=== PATIENT | female | born 1950 | race Caucasian/White ===

== ENCOUNTER → 2018-03-13 | Outpatient (CLI) | payer OTHER, MEDICAID ==
[~2018-03-13] MED LIST: ALPRAZOLAM; AMITIZA 24 MCG24 MC1; ASPIR 8181 MG PO; ASPIRIN325; BUDEPRION SR150 MG; CLONAZEPAM; CLONAZEPAM 0.50.5 M1 PO; COLACE100 MG; COZAAR 50 MG TA50 M2 PO; DESYREL50 MG; FAMOTIDINE 20 M20 MG PO; FISH OIL SOFTG1 EACH; FUROSEMIDE 20 M20 M1 PO; FUROSEMIDE 40 M40 M1 PO; HUMALOG100 UNIT/2 SUBQ; IMDUR 30 MG TAB30 MG; K-DUR10 MEQ PO; LEVO-T50 MCG PO; LEXAPRO20 MG; LIPITOR 20 MG T20 M1 PO; LOVASTAT40; MINIPRIN81 MG; NEURONTIN800 MG; NIASPAN ER 101000 M1; NORCO 5-325 TA1 EACH PO; NOVOLOG MI100 UNIT/2; OMEPRAZOLE20 M2; PERCOCET 5-3251 EACH; PLAVIX 75 MG TA75 M1 PO; PLAVIX 75 MG TA75 MG; RENAL SOFTGEL1 MG; SODIUM BICARBO650 M3; SYNTHROID25 MC1 PO; SYNTHROID50 MCG PO; TOPROL XL200 MG; TYLENOL325 MG PO; VITAMIN B-12500 MCG PO; VITAMIN D1000 UNI1 PO; ZANTAC 150MG T150 M1
[2018-03-13 10:56] LABS: CREATININE 0.7 mg/dL (0.6-1.3)
== END ==
LOC: M.LAB 10:00 → M.CT 11:00
PROVIDERS: Surgery
DX: I65.23 Occlusion and stenosis of bilateral carotid arteries (principal); J43.9 Emphysema, unspecified

== ENCOUNTER 2018-06-01 07:55 | Inpatient (IN) | payer OTHER, MEDICAID ==
[2018-06-01] VITALS (20 sets, daily range): BP systolic 88–147; BP diastolic 27–60
[~2018-06-01] VITALS: Ht 165.1 cm; Wt 66.2 kg
[~2018-06-01 07:55] MED LIST changes: -ASPIR 8181 MG PO; -FAMOTIDINE 20 M20 MG PO; -FUROSEMIDE 40 M40 M1 PO; -NORCO 5-325 TA1 EACH PO; -SYNTHROID50 MCG PO
[2018-06-01 08:38] LABS: ABSOLUTE EOSINOPHILS 0.1 thou/uL (0.0-0.7); ABSOLUTE LYMPHOCYTES 1.5 thou/uL (0.8-5.3); ABSOLUTE MONOCYTES 0.6 thou/uL (0.0-1.2); ABSOLUTE NEUTROPHILS 3.4 thou/uL (1.6-8.1); BASOPHILS 0.7 %; HEMATOCRIT 32.1 % (37.0-47.0); HEMOGLOBIN 10.4 gm/dL (12.0-15.0); LYMPHOCYTES 26.3 %; MCH 25.7 pg (26.0-34.0); MCHC 32.3 g/dL (28.0-37.0); MCV 79.5 fL (80.0-100.0); MONOCYTES 11.3 %; MPV 7.8 fl. (7.2-11.1); NUCLEATED RBCS 0 /100WBC; PLATELET COUNT* 307 thou/uL (150-400); POLYS 59.7 %; RBC 4.03 mil/uL (4.20-5.00); WBC 5.6 thou/uL (4.0-11.0)
[2018-06-01 08:44] LABS: CALCIUM 9.1 mg/dL (8.5-10.1); CREATININE 0.8 mg/dL (0.6-1.3); POTASSIUM 4.3 mmol/L (3.5-5.1)
--- NOTE | 2018-06-01 15:22 | EKG ---
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
[2018-06-01 17:36] LABS: HEMATOCRIT 27.1 % (37.0-47.0); HEMOGLOBIN 8.8 gm/dL (12.0-15.0)
[2018-06-01 17:49] LABS: CALCIUM 8.1 mg/dL (8.5-10.1); CREATININE 0.8 mg/dL (0.6-1.3); MAGNESIUM 1.6 mg/dL (1.8-2.4); POTASSIUM 4.4 mmol/L (3.5-5.1)
[2018-06-02] VITALS (9 sets, daily range): BP systolic 121–155; BP diastolic 32–48
[2018-06-02 09:24] LABS: HEMOGLOBIN 8.6 gm/dL (12.0-15.0); MCH 25.9 pg (26.0-34.0); MCHC 31.9 g/dL (28.0-37.0); MCV 81.2 fL (80.0-100.0); MPV 7.8 fl. (7.2-11.1); RBC 3.32 mil/uL (4.20-5.00); RDW-CV 16.3 % (10.5-14.5); WBC 7.5 thou/uL (4.0-11.0)
[2018-06-02 09:31] LABS: CALCIUM 8.4 mg/dL (8.5-10.1); POTASSIUM 4.6 mmol/L (3.5-5.1)
[2018-06-02] MEDS ORDERED: ASPIR 8181 MG PO (13:51)
[2018-06-02] MEDS ORDERED: FUROSEMIDE 40 M40 M1 PO (13:52)
[2018-06-02] MEDS ORDERED: NORCO 5-325 TA1 EACH PO (13:55)
[2018-06-02] MEDS ORDERED: FAMOTIDINE 20 M20 MG PO (14:28)
[2018-06-02] MEDS ORDERED: COZAAR 50 MG TA50 M2 PO (14:29)
[2018-06-02] MEDS ORDERED: SYNTHROID50 MCG PO (14:31)
--- NOTE | 2018-06-10 08:09 | PATH ---
[facility] [address] [place] [address] PATHOLOGY RPT PROCEDURE Name: MICHELLE ROBLEDO Room: [address] IN M.R.#: [id number] Admission: 06/01/18 Date of : 46 Discharge: 06/02/18 Report #: [id number] Path Case #: [id number] [facility] Accession Number: [id number] . 01 Material submitted: . PART A: RIGHT CERVICAL NODE PART B: RIGHT CAROTID PLAQUE . 01 Clinical history: . Right carotid artery stenosis . 02 Diagnosis: A. Right cervical lymph node: - Benign lymph node with mild follicular hyperplasia. . B. Right carotid plaque: - Fibrointimal atherosclerotic plaque with calcification. . (NATACHA:pit 06/05/2018) QTP/06/05/2018 . 02 Electronically signed: . Fabián Sloan MD, Pathologist NPI- [id number] . 01 Gross description: . A. The specimen is received in formalin, labeled "Michelle Robledo, right cervical lymph node" and consists of a lymph node candidate measuring 1.3 x 0.6 x 0.4 cm. It is serially sectioned and entirely submitted in A1. . B. The specimen is received in formalin, labeled "Michelle Robledo, right carotid plaque" and consists of a rubbery segment of yellow-evans tissue measuring 2.6 x 1.2 x 0.8 cm. The lumen is markedly calcified approximately 40-50% and u.s. representative sections are submitted in B1 following decalcification. (SDY; 06/02/2018) SYU/SYU . 02 Pathologist provided ICD-10: I65.21, R59.9 . 02 CPT . 790611, 186626, 811280 Performed at: [address] [id number] MD Ant Andersen MD Phone: [phone] Performed at: [address] [place] [address] PATHOLOGY RPT PROCEDURE Name: MICHELLE ROBLEDO Room: [address] IN M.R.#: [id number] Admission: 06/01/18 Date of : 46 Discharge: 06/02/18 Report #: [id number] Path Case #: [id number] [address], [place] [id number] MD Fabián Sloan MD Phone: [phone]
--- NOTE | 2018-06-16 14:40 | OP ---
[facility] [address] [place] [address] OPERATIVE REPORT Name: ABDOUL ROBLEDO Room: [address] IN M.R.#: [id number] Admission: 06/01/18 Attend Phys: Keri Sweet Discharge: 06/02/18 Date of : 46 Report #: [id number] THIS REPORT FOR: //name// CC: Zain Hernandez DATE OF SERVICE: 06/01/2018 PREOPERATIVE DIAGNOSIS: Asymptomatic carotid stenosis, right internal carotid artery. POSTOPERATIVE DIAGNOSIS: Asymptomatic carotid stenosis, right internal carotid artery. SURGEON: Zain Fernández DO. EXECUTIVE VICE PRESIDENT OF SALES: None. PROCEDURE: 1. Right carotid endarterectomy and bovine pericardial patch angioplasty. 2. Intraoperative arterial duplex. ANESTHESIA: General endotracheal anesthesia. ESTIMATED BLOOD LOSS: 100 mL. SPECIMEN: Plaque. COMPLICATIONS: None. CONDITION: Stable. DISPOSITION: ICU. INDICATIONS FOR THE PROCEDURE AND CONSENT: A timeout was performed. The patient was placed in supine position with sterile prep and drape of the anterior neck and chest wall. Semi-transverse incision was made anterior to the sternocleidomastoid on the right and dissection was carried down using Bovie electrocautery. The facial vein was then dissected sharply with Metzenbaum scissors and the facial vein ligated between 2-0 silk sutures and divided. The common carotid artery was then identified and sharply dissected and proximal controlled with a Rumel tourniquet using an umbilical tape. The internal and external carotid artery was then dissected sharply to a soft, normal portion of the internal carotid artery and posterior small vessel loop was applied to assist with control. The external carotid artery was controlled with a vessel [address] [address] OPERATIVE REPORT Name: ABDOUL ROBLEDO Room: [address] IN R.#: [id number] Admission: 06/01/18 Attend Phys: Keri Sweet Discharge: 06/02/18 Date of : 46 Report #: [id number]. The patient was then systemically heparinized with 6000 units of heparin, allowed to circulate for 3 minutes. The internal carotid artery was then clamped as was the external common carotid artery controlled. An 11 blade scalpel and West scissors used to make a longitudinal arteriotomy and a shunt was placed distally and noted to backbleed well, was then placed within the common carotid artery and secured. Plaque elevator was then used to perform the endarterectomy and tapered distally nicely. The external carotid artery was everted and debris was removed. The endarterectomized portion was meticulously cleaned with forceps and irrigated copiously with hep saline to identify any flaps or debris and none were identified. No tacking sutures were required. Once satisfied with the endarterectomy portion, I then applied a 0.8 x 8 mm patch and circumferentially sutured it with 6-0 Prolene. Prior to complete closure, the shunt was removed reapplying clamps and the endarterectomized portion was again copiously irrigated with heparinized saline and allowed to backbleed from the external and forward bleed through in the common carotid artery to remove any potential debris. The area was then reirrigated and the patch closed. Blood flow was then restored through the external carotid artery and ultimately up the internal carotid artery. The patch was noted to be hemostatic. The wound was irrigated and then, an intraoperative duplex was performed. The intraoperative duplex demonstrated normal appearing waveforms and no anatomic concerns, please see saved images. Wound was then copiously irrigated and closed in layers using 2-0 Vicryl, 3-0 Vicryl and 4-0 Monocryl suture. Dermabond dressing was applied. The patient tolerated the procedure well. Lap, needle, instrument counts correct. <ELECTRONICALLY SIGNED> By: Zain Fernández DO 06/16/18 1440 1400 1424Zain Fernández DO /nt
== END 2018-06-02 14:45 | disposition home health service (06) | DRG 38 ==
LOC: M.TBA 07:55 → M.ICU 07:55 → M.PRE 08:50 → M.ICU 15:55
PROVIDERS: Surgery; ADMIT Internal Medicine
PROC: 03HY32Z Insertion of Monitoring Device into Upper Artery, Percutaneous Approach (ICD-10-PCS; principal; 2018-06-01)
PROC: 4A133J1 Monitoring of Arterial Pulse, Peripheral, Percutaneous Approach (ICD-10-PCS; principal; 2018-06-01)
PROC: 03CH0ZZ Extirpation of Matter from Right Common Carotid Artery, Open Approach (ICD-10-PCS; principal; 2018-06-01)
PROC: 03UH0JZ Supplement Right Common Carotid Artery with Synthetic Substitute, Open Approach (ICD-10-PCS; principal; 2018-06-01)
PROC: 4A133B1 Monitoring of Arterial Pressure, Peripheral, Percutaneous Approach (ICD-10-PCS; principal; 2018-06-01)
DX: I65.21 Occlusion and stenosis of right carotid artery (principal); E87.1 Hypo-osmolality and hyponatremia; E11.51 Type 2 diabetes mellitus with diabetic peripheral angiopathy without gangrene; I10 Essential (primary) hypertension; E03.9 Hypothyroidism, unspecified; E78.5 Hyperlipidemia, unspecified; F17.210 Nicotine dependence, cigarettes, uncomplicated; I70.209 Unspecified atherosclerosis of native arteries of extremities, unspecified extremity; Z90.49 Acquired absence of other specified parts of digestive tract; Z98.1 Arthrodesis status; Z95.5 Presence of coronary angioplasty implant and graft

== ENCOUNTER → 2019-09-25 | Outpatient (CLI) | payer OTHER, MEDICAID ==
[~2019-09-25] MED LIST changes: +ASPIR 8181 MG PO; +FAMOTIDINE 20 M20 MG PO; +FUROSEMIDE 40 M40 M1 PO; +NORCO 5-325 TA1 EACH PO; +SYNTHROID50 MCG PO
[2019-09-25 12:41] LABS: HEMATOCRIT 39.2 % (37.0-47.0); HEMOGLOBIN 13.7 gm/dL (12.0-15.0)
[2019-09-25 12:57] LABS: CALCIUM 9.2 mg/dL (8.5-10.1); CREATININE 0.8 mg/dL (0.6-1.3)
== END ==
LOC: M.LAB 12:02
PROVIDERS: Surgery Vascular Surgery
DX: I70.213 Atherosclerosis of native arteries of extremities with intermittent claudication, bilateral legs (principal)

== ENCOUNTER 2019-11-14 08:35 | Emergency (ER) | payer OTHER, MEDICAID ==
[~2019-11-14] VITALS: Ht 165.1 cm; Wt 66.7 kg
[2019-11-14] MEDS ORDERED: NORCO 5-325 TA1 EAC1 PO (11:26)
[2019-11-14 12:19] VITALS: BP 109/45
== END 2019-11-14 12:21 | disposition home or self-care (01) ==
LOC: M.ERS 08:35
DX: M25.562 Pain in left knee (principal); M25.552 Pain in left hip; M54.5 Low back pain; I10 Essential (primary) hypertension; E11.9 Type 2 diabetes mellitus without complications; E78.5 Hyperlipidemia, unspecified; E03.9 Hypothyroidism, unspecified; Z90.49 Acquired absence of other specified parts of digestive tract

== ENCOUNTER 2019-11-15 07:51 | Inpatient (IN) | payer OTHER, MEDICAID ==
[~2019-11-15] VITALS: Ht 165.1 cm; Wt 71.6 kg
[~2019-11-15 07:51] MED LIST changes: +COZAAR 50 MG TA50 M1 PO; +NORCO 5-325 TA1 EAC1 PO
[2019-11-15 07:52] VITALS: BP 154/51
[2019-11-15 08:23] LABS: ABSOLUTE EOSINOPHILS 0.1 thou/uL (0.0-0.7); ABSOLUTE LYMPHOCYTES 0.9 thou/uL (0.8-5.3); ABSOLUTE MONOCYTES 0.8 thou/uL (0.0-1.2); ABSOLUTE NEUTROPHILS 6.3 thou/uL (1.6-8.1); BASOPHILS 0.5 %; EOSINOPHILS 1.7 %; HEMATOCRIT 37.1 % (37.0-47.0); HEMOGLOBIN 12.9 gm/dL (12.0-15.0); LYMPHOCYTES 10.9 %; MCH 32.8 pg (26.0-34.0); MCHC 34.7 g/dL (28.0-37.0); MCV 94.4 fL (80.0-100.0); MONOCYTES 9.5 %; MPV 7.7 fl. (7.2-11.1); NUCLEATED RBCS 0 /100WBC; PLATELET COUNT* 249 thou/uL (150-400); POLYS 77.4 %; RBC 3.93 mil/uL (4.20-5.00); RDW-CV 12.3 % (10.5-14.5); WBC 8.2 thou/uL (4.0-11.0)
[2019-11-15 08:37] LABS: CALCIUM 8.6 mg/dL (8.5-10.1); CREATININE 0.9 mg/dL (0.6-1.3); POTASSIUM 4.3 mmol/L (3.5-5.1)
[2019-11-15 08:41] LABS: ALBUMIN 3.3 g/dL (3.4-5.0); TOTAL BILIRUBIN 0.4 mg/dL (<0.1-1.0); TOTAL PROTEIN 6.5 g/dL (6.4-8.2)
[2019-11-15 09:49] VITALS: BP 123/41
[2019-11-15 10:00] VITALS: BP 137/44
[2019-11-15 14:12] LABS: URINE BILIRUBIN NEGATIVE (Negative); URINE BLOOD NEGATIVE (Negative); URINE CLARITY CLEAR; URINE COLOR YELLOW; URINE GLUCOSE-RANDOM NEGATIVE (Negative); URINE KETONES NEGATIVE (Negative); URINE LEUKOCYTES-REFLEX TRACE (Negative); URINE NITRITE-REFLEX NEGATIVE (Negative); URINE PROTEIN NEGATIVE (Negative); URINE UROBILINOGEN 0.2 E.U./dl (0.2-1.0)
[2019-11-15 14:18] LABS: BACTERIA-REFLEX >30 Many /HPF (None Seen); CASTS None Seen /LPF (None Seen); CRYSTALS None Seen /LPF (None Seen); SQUAMOUS 0-3 Few /LPF (0-3); URINE RBC 0-2 Rare /HPF (0-2); WBC CLUMPS Moderate (None Seen)
[2019-11-15 16:00] VITALS: BP 128/52
--- NOTE | 2019-11-15 18:57 | NUR ---
PT ARRIVED ON UNIT AT 1000, PAIN MEDS PROVIDED PRIOR TO ARRIVAL. VSS THIS SHIFT. PLACED ON 2L PER NC TO KEEP O2 SATS GREATER THAN 92%. PT HAS BEDREST ORDERED AT THIS TIME WITH PT/OT CONSULTS. PT TURNS SELF WELL BUT WE ARE REMINDING AT THIS TIME. HOURLY ROUNDING MAINTAINED THIS SHIFT. WILL CONTINUE TO MONITOR AND ASSESS
[2019-11-15 20:10] VITALS: BP 146/53
--- NOTE | 2019-11-16 04:50 | NUR ---
PATIENT HAS REMAINED ALERT AND ORIENTED X 4 THROUGHOUT THE SHIFT ON HOURLY ROUNDS. THIS INCLUDES DURING THE EVENING WHEN BLOOD GLUCOSE FOUND AT 29. STAT LAB DRAW 30. SNACK PROVIDED WITH RETURN TO NORMAL LIMITS AT 94. FURTHER CHECKS DURING THE NIGHT 97 AND LASTLY AT 0430 AT 100. PATIENT DOES HAVE A PROGRAMABLE INSULIN PUMP BUT HAS ASKED FOR US TO USE OUR INSULIN SHE LITTLE LEFT. ASSIST WITH TURNS Q2H. MEDICATED FOR BACK PAIN X 1 OF THIS WRITING. VITAL SIGNS STABLE. CONTINUE TO MONITOR.
[2019-11-16 08:13] VITALS: BP 133/50
--- NOTE | 2019-11-16 09:31 | NUR ---
CM ASSESSMENT: PT LIVES ALONE IN [place]. HER NIECE HELPS HER AROUND THE HOUSE FREQUENTLY. SHE USES PRIMARILY AN ELECTRIC WC AND TRANSFERS TO BR AND SHOWER. PT ABLE TO PERFORM ADLS WITHOUT ASSIST. 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 HER DR HAS RECOMMENDED O2 AT NIGHT BUT SHE REFUSES. PT DOES NOT DRIVE. SHE USES [facility] FOR DR MONTELONGO AND HAS HER NIECE OR CHILDREN TAKE HER TO THE STORE OR OTHER TRANSPORT NEEDS. PT DENIES NEED FOR HH UPON DC. WILL CONTINUE TO FOLLOW
--- NOTE | 2019-11-16 16:26 | NUR ---
SNF RECOMMENDED BY Parisa AND DR. CALEB LANIER,[employer] DRAFTSMAN.
[2019-11-16 16:45] VITALS: BP 128/43
--- NOTE | 2019-11-16 16:52 | NUR ---
FAXED CLINICAL REFERRALS TO [facility] [phone] AND [facility] [place] [phone]. NOT ABLE TO CONFIRM CONFIRMATION BUT WILL FOLLOW ON 11/19/19.
--- NOTE | 2019-11-16 17:37 | NUR ---
PT A&Ox4. VITALS STABLE. IV PATENT. PT REMOVED PERSONAL INSULIN PUMP, RECEIVING SLIDING SCALE INSULIN FROM [facility]. UP WITH 1 MAX ASSIST. GOT UP TO CHAIR WITH THERAPY. TOLERATING MEALS. MINIMAL PAIN, PAIN MEDS GIVEN AFTER BREAKFAST AND DENIED THE NEED OF ANY MORE. LIDOCANE PATCH ON LOWER BACK. FALL PRECAUTIONS IN PLACE. CALL LIGHT WITHIN REACH. WILL CONTINUE TO MONITOR.
[2019-11-16 20:10] VITALS: BP 153/51
--- NOTE | 2019-11-17 04:47 | NUR ---
PATIENT HAS REMAINED ALERT AND ORIENTED X 4 THROUGHOUT THE SHIFT AND RESTING QUIETLY ON HOURLY ROUNDS. BREATHING TX X1 THIS SHIFT WHEN AWOKE WITH WHEEZING. MEDICATED FOR PAIN X 1. PATIENT REPORTS SHE HAS DECREASED ABLILTY TO MOVE LOWER EXTREMITIES SINCE FALL AT HOME/WHEN UP WITH THERAPY WAS UNABLE TO MOVE LEGS WITH SAME STRENGTH AND PURPOSE PRE-FALL. VITAL SIGNS STABLE. CONTINUE TO MONITOR.
[2019-11-17 08:45] VITALS: BP 120/41
[2019-11-17 17:19] VITALS: BP 110/28
[2019-11-17 20:00] VITALS: BP 113/41
--- NOTE | 2019-11-17 20:27 | NUR ---
I ASSUMED CARE OF THE PATIENT AT 0700. SHE IS ALERT AND ORIENTED X4 AND IS UP WITH MAX ASSIST. BED IS IN THE LOW LOCKED POSITION AND CALL LIGHT IS IN REACH. PAIN IS DENIED. HOURLY ROUNDING IS COMPLETED AND PATIENT NEEDS ARE MET. BLOOD SUGAR WAS HIGH AT THE BEGINNING OF SHIFT. PHYSICIAN WAS NOTIFIED AND NEW ORDERS WERE OBTAINED; BS CONTINUED TO TREND DOWN ALL DAY. FLUIDS WERE INFUSED. WILL CONTINUE TO MONITOR. NEW IV WAS PLACED.
--- NOTE | 2019-11-18 05:03 | NUR ---
ASSUMED PT CARE AT 1930. PT ALERT AND ORIENTED X4. PT BLOOD SUGAR 119 AT HS, S/S INSULIN GIVEN PER MAR. PRN TYLENOL GIVEN FOR BACK/LEFT LEG PAIN. PT VERY EXACTING REGARDING BED ADJUSTMENTS AND Q2 TURNS. 2L O2 PER NC. DELACRUZ TO DD DRAINING DARK YELLOW URINE. USES CALL LIGHT APPROPRIATELY. HOURLY ROUNDING IN PROGRESS, WILL CONTINUE TO MONITOR.
[2019-11-18 07:30] VITALS: BP 135/53
[2019-11-18 16:00] VITALS: BP 148/41
--- NOTE | 2019-11-18 18:00 | NUR ---
PATIENT HAS BEEN A/O X 4 THIS SHIFT. MEDICATED FOR PAIN WITH TYLENOL AND LIDODERM PATCHES. PATIENT MAX ASSIST OF 2 TO CHAIR AND BSC. NO BM BUT PASSING FLATUS. WORKED WITH PHYSICAL THERAPY THIS SHIFT. REPOSITIONED FOR PRESSURE PREVENTION. O2 REMAINS IN PLACE AT 2L/NC, VITALS STABLE. BLOOD SUGARS MONITORED, INSULIN ADMINISTERED ORDERED. UPDATED FAMILY ON PLAN OF CARE. CM CONSULTED FOR DC PLANNING. FALL PRECAUTIONS IN PLACE. HOURLY ROUNDING COMPLETED. CALL LIGHT WITHIN REACH. WILL CONTINUE WITH PLAN OF CARE.
[2019-11-18 20:30] VITALS: BP 146/60
--- NOTE | 2019-11-18 22:29 | NUR ---
INITAL ASSESMENT COMPLETED AT 2030, PT PLEASANT AND COOPERATIVE. VITAL SIGNS WITHIN NORMAL LIMITS, CALL LIGHT IN REACH, PT DEMONSTRATES PROPER USE.
[2019-11-19 09:20] VITALS: BP 146/61
[2019-11-19 09:41] LABS: HEMOGLOBIN 12.8 gm/dL (12.0-15.0); RDW-CV 12.1 % (10.5-14.5)
[2019-11-19 09:43] LABS: HEMATOCRIT 37.6 % (37.0-47.0); MCH 32.9 pg (26.0-34.0); MCV 96.8 fL (80.0-100.0); NUCLEATED RBCS 0 /100WBC; PLATELET COUNT* 262 thou/uL (150-400); RBC 3.89 mil/uL (4.20-5.00); WBC 10.9 thou/uL (4.0-11.0)
[2019-11-19 09:55] LABS: ALBUMIN 3.1 g/dL (3.4-5.0); CALCIUM 8.5 mg/dL (8.5-10.1); POTASSIUM 4.5 mmol/L (3.5-5.1); TOTAL BILIRUBIN 0.6 mg/dL (<0.1-1.0); TOTAL PROTEIN 6.7 g/dL (6.4-8.2)
[2019-11-19 10:37] LABS: ABSOLUTE BASOPHILS 0.2 thou/uL (0.0-0.2); ABSOLUTE EOSINOPHILS 0.1 thou/uL (0.0-0.7); ABSOLUTE LYMPHOCYTES 0.9 thou/uL (0.8-5.3); ABSOLUTE MONOCYTES 0.3 thou/uL (0.0-1.2); ABSOLUTE NEUTROPHILS 9.4 thou/uL (1.6-8.1)
[2019-11-19 10:38] LABS: PLATELET ESTIMATE ADEQUATE
--- NOTE | 2019-11-19 15:00 | NUR ---
PT.UP IN CHAIR. DAUGHTER AT BEDSIDE. ASKED IF THEY HAD PREFERENCE OF [facility] OR [facility]. SHE SAID [facility]. DAUGHTER SAID HER DAJA WORKS OVER THERE SO THAT IS OUR PREFERENCE. PT.SAID SHE HAS A CDUGH. DAUGHTER ASKING FOR A BREATHING TX FOR HER. DONI GUILLEN INFORMED.
[2019-11-19 15:57] LABS: BE 4.8 mmol/L (-2 to +3); PO2 71.8 mmHg (75.0-100.0)
[2019-11-19 16:00] VITALS: BP 155/38
--- NOTE | 2019-11-19 19:00 | NUR ---
PATIENT COOPERATIVE W/ ASSESS AND CARES. COOPERATIVE W/ THERAPIES. SITTING UP IN RECLINER THRU AFTERNOON. SEE MAR. O2 1L/NC THIS AFTERNOON, SATS 90-91%, NOTED SOB, LS DIM TO, NOTIFIED, ORDERS REC'D. IV CATH SITE WNL. DELACRUZ CATH PATIENT W/ YELLOW URINE. PATIENT CURRENTLY IN RECLINER W/ TV ON, TALKING ON CELL PHONE TO FAMILY MEMBER. DENIES NURSING NEEDS. HRLY ROUNDS DONE. CALL LIGHT IN REACH. NO ACUTE DISTRESS NOTED. ~TJRN
[2019-11-19 19:30] VITALS: BP 146/77
[2019-11-20 02:06] LABS: GLYCOHEMOGLOBIN (HGB A1C) 6.1 % (4.8-5.6)
[2019-11-20 04:27] LABS: ABSOLUTE EOSINOPHILS 0.2 thou/uL (0.0-0.7); ABSOLUTE LYMPHOCYTES 1.4 thou/uL (0.8-5.3); BASOPHILS 0.5 %; EOSINOPHILS 3.2 %; HEMATOCRIT 33.9 % (37.0-47.0); HEMOGLOBIN 11.8 gm/dL (12.0-15.0); LYMPHOCYTES 18.6 %; MCH 32.9 pg (26.0-34.0); MCHC 34.7 g/dL (28.0-37.0); MCV 94.6 fL (80.0-100.0); MONOCYTES 12.8 %; NUCLEATED RBCS 0 /100WBC; PLATELET COUNT* 267 thou/uL (150-400); POLYS 64.9 %; RBC 3.59 mil/uL (4.20-5.00); RDW-CV 11.9 % (10.5-14.5); WBC 7.7 thou/uL (4.0-11.0)
[2019-11-20 04:41] LABS: CALCIUM 8.3 mg/dL (8.5-10.1); CREATININE 0.8 mg/dL (0.6-1.3); POTASSIUM 3.6 mmol/L (3.5-5.1)
[2019-11-20 08:30] VITALS: BP 186/54
--- NOTE | 2019-11-20 09:53 | NUR ---
FAXED UPDATED REFERRAL TO [facility]. CONFIRMED WITH DAMIAN/GUANAKO THAT SHE WILL REVIEW FOR AUTHORIZATION. [phone](DAMIAN); [phone].
--- NOTE | 2019-11-20 13:00 | NUR ---
SUSAN/ABHINAV CALLED AND SAID THEY CAN ACCEPT PT.TO A SKILLED BED TODAY. SHE WILL SET UP VAN FOR [phone]. FAXED DISCHARGE ORDERS TO [facility]. INFORMED PT.OF TRANSFER TIME. CHART COPIED TO GO WITH PT. NURSING TO CALL REPORT.
[2019-11-20 16:18] VITALS: BP 186/54
[2019-11-20 16:30] VITALS: BP 186/54
--- NOTE | 2019-11-20 20:48 | NUR ---
I ASSUMED CARE OF THE PATIENT AT 0700. SHE IS ALERT AND ORIENTED X4 AND IS UP WITH MAX ASSIST OF 2. BED IS IN THE LOW LOCKED POSITION AND CALL LIGHT IS IN REACH. HOURLY ROUNDING IS COMPLETED AND PATIENT NEEDS ARE MET. PAIN IS DENIED. PATIENT IS DISCHARGED TO [facility] AT 1630 AND WAS TRANSPORTED BY WHEEL CHAIR VAN. IV WAS D/C'D. REPORT WAS CALLED. DELACRUZ WAS LEFT IN PLACE SINCE PATIENT DOES NOT HAVE ANY OF HER STRAIGHT CATH SUPPLIES. BLOOD SUGAR WAS MONITORED AND INSULIN WAS GIVEN NEEDED.
== END 2019-11-20 17:00 | DRG 177 ==
LOC: M.ERS 07:51 → M.ORTHSURG 09:16 → M.TBA-ER 09:16 → M.ORTHSURG 09:59
PROVIDERS: Emergency Medicine Emergency Medical Services; Internal Medicine; ADMIT Family Medicine
DX: J15.6 Pneumonia due to other Gram-negative bacteria (principal); E11.00 Type 2 diabetes mellitus with hyperosmolarity without nonketotic hyperglycemic-hyperosmolar coma (NKHHC); J96.21 Acute and chronic respiratory failure with hypoxia; N39.0 Urinary tract infection, site not specified; E44.1 Mild protein-calorie malnutrition; E87.1 Hypo-osmolality and hyponatremia; J44.0 Chronic obstructive pulmonary disease with (acute) lower respiratory infection; J44.1 Chronic obstructive pulmonary disease with (acute) exacerbation; R04.2 Hemoptysis; M47.819 Spondylosis without myelopathy or radiculopathy, site unspecified; M54.5 Low back pain; E11.51 Type 2 diabetes mellitus with diabetic peripheral angiopathy without gangrene; E78.5 Hyperlipidemia, unspecified; E03.9 Hypothyroidism, unspecified; G89.29 Other chronic pain; M41.9 Scoliosis, unspecified; F41.9 Anxiety disorder, unspecified; B96.20 Unspecified Escherichia coli [E. coli] as the cause of diseases classified elsewhere; E11.649 Type 2 diabetes mellitus with hypoglycemia without coma; Z79.4 Long term (current) use of insulin; Z79.899 Other long term (current) drug therapy; Z87.891 Personal history of nicotine dependence; Z91.81 History of falling; Z68.26 Body mass index [BMI] 26.0-26.9, adult; Z90.49 Acquired absence of other specified parts of digestive tract; Z95.5 Presence of coronary angioplasty implant and graft; Z83.3 Family history of diabetes mellitus; Z82.49 Family history of ischemic heart disease and other diseases of the circulatory system; Z98.1 Arthrodesis status

== ENCOUNTER → 2020-03-20 | Outpatient (CLI) | payer OTHER, MEDICAID | LOC: M.WC 08:54 → EDBD 08:54 → M.WC 09:00 | DX: E11.621 Type 2 diabetes mellitus with foot ulcer (principal); L97.422 Non-pressure chronic ulcer of left heel and midfoot with fat layer exposed; I70.248 Atherosclerosis of native arteries of left leg with ulceration of other part of lower leg; L97.821 Non-pressure chronic ulcer of other part of left lower leg limited to breakdown of skin; L84 Corns and callosities; E11.51 Type 2 diabetes mellitus with diabetic peripheral angiopathy without gangrene; E11.40 Type 2 diabetes mellitus with diabetic neuropathy, unspecified; E03.9 Hypothyroidism, unspecified; I10 Essential (primary) hypertension; I25.10 Atherosclerotic heart disease of native coronary artery without angina pectoris; J44.9 Chronic obstructive pulmonary disease, unspecified; K21.9 Gastro-esophageal reflux disease without esophagitis; F41.9 Anxiety disorder, unspecified; F32.9 Major depressive disorder, single episode, unspecified; Z90.49 Acquired absence of other specified parts of digestive tract; Z98.49 Cataract extraction status, unspecified eye; Z87.891 Personal history of nicotine dependence; Z79.4 Long term (current) use of insulin ==

== ENCOUNTER → 2020-04-11 | Outpatient (CLI) | payer OTHER, MEDICAID | LOC: M.WC 05:25 | DX: E11.621 Type 2 diabetes mellitus with foot ulcer (principal); I70.244 Atherosclerosis of native arteries of left leg with ulceration of heel and midfoot; L97.421 Non-pressure chronic ulcer of left heel and midfoot limited to breakdown of skin; E11.622 Type 2 diabetes mellitus with other skin ulcer; I70.248 Atherosclerosis of native arteries of left leg with ulceration of other part of lower leg; L97.821 Non-pressure chronic ulcer of other part of left lower leg limited to breakdown of skin; S91.312A Laceration without foreign body, left foot, initial encounter; E11.51 Type 2 diabetes mellitus with diabetic peripheral angiopathy without gangrene; E11.40 Type 2 diabetes mellitus with diabetic neuropathy, unspecified; L84 Corns and callosities; J44.9 Chronic obstructive pulmonary disease, unspecified; K21.9 Gastro-esophageal reflux disease without esophagitis; I10 Essential (primary) hypertension; E03.9 Hypothyroidism, unspecified; F32.9 Major depressive disorder, single episode, unspecified; F41.9 Anxiety disorder, unspecified; Z87.891 Personal history of nicotine dependence; Z79.4 Long term (current) use of insulin; X58.XXXA Exposure to other specified factors, initial encounter; Y93.89 Activity, other specified; Y92.89 Other specified places as the place of occurrence of the external cause; Y99.8 Other external cause status ==

== ENCOUNTER → 2020-04-18 | Outpatient (CLI) | payer OTHER, MEDICAID | LOC: M.WC 05:14 | PROVIDERS: ATTEND Family Medicine | DX: E11.621 Type 2 diabetes mellitus with foot ulcer (principal); I70.245 Atherosclerosis of native arteries of left leg with ulceration of other part of foot; L97.522 Non-pressure chronic ulcer of other part of left foot with fat layer exposed; I70.244 Atherosclerosis of native arteries of left leg with ulceration of heel and midfoot; L97.428 Non-pressure chronic ulcer of left heel and midfoot with other specified severity; S91.312D Laceration without foreign body, left foot, subsequent encounter; L84 Corns and callosities; E11.51 Type 2 diabetes mellitus with diabetic peripheral angiopathy without gangrene; E11.40 Type 2 diabetes mellitus with diabetic neuropathy, unspecified; I25.10 Atherosclerotic heart disease of native coronary artery without angina pectoris; J44.9 Chronic obstructive pulmonary disease, unspecified; K21.9 Gastro-esophageal reflux disease without esophagitis; I10 Essential (primary) hypertension; F32.9 Major depressive disorder, single episode, unspecified; F41.9 Anxiety disorder, unspecified; Z87.891 Personal history of nicotine dependence; Z79.4 Long term (current) use of insulin; X58.XXXD Exposure to other specified factors, subsequent encounter ==

== ENCOUNTER → 2020-05-02 | Outpatient (CLI) | payer OTHER, MEDICAID | LOC: M.WC 03:53 | PROVIDERS: ATTEND Family Medicine | DX: I70.245 Atherosclerosis of native arteries of left leg with ulceration of other part of foot (principal); E11.621 Type 2 diabetes mellitus with foot ulcer; L97.522 Non-pressure chronic ulcer of other part of left foot with fat layer exposed; I70.248 Atherosclerosis of native arteries of left leg with ulceration of other part of lower leg; E11.622 Type 2 diabetes mellitus with other skin ulcer; L97.821 Non-pressure chronic ulcer of other part of left lower leg limited to breakdown of skin; S91.312D Laceration without foreign body, left foot, subsequent encounter; E11.51 Type 2 diabetes mellitus with diabetic peripheral angiopathy without gangrene; E11.40 Type 2 diabetes mellitus with diabetic neuropathy, unspecified; I25.10 Atherosclerotic heart disease of native coronary artery without angina pectoris; J44.9 Chronic obstructive pulmonary disease, unspecified; K21.9 Gastro-esophageal reflux disease without esophagitis; I10 Essential (primary) hypertension; E03.9 Hypothyroidism, unspecified; F32.9 Major depressive disorder, single episode, unspecified; F41.9 Anxiety disorder, unspecified; Z87.891 Personal history of nicotine dependence; Z79.4 Long term (current) use of insulin; X58.XXXD Exposure to other specified factors, subsequent encounter ==

== ENCOUNTER → 2020-05-16 | Outpatient (CLI) | payer OTHER, MEDICAID | LOC: M.WC 05:30 | PROVIDERS: ATTEND Family Medicine | DX: E11.621 Type 2 diabetes mellitus with foot ulcer (principal); I70.245 Atherosclerosis of native arteries of left leg with ulceration of other part of foot; L97.521 Non-pressure chronic ulcer of other part of left foot limited to breakdown of skin; I70.248 Atherosclerosis of native arteries of left leg with ulceration of other part of lower leg; L97.821 Non-pressure chronic ulcer of other part of left lower leg limited to breakdown of skin; S91.312D Laceration without foreign body, left foot, subsequent encounter; E11.51 Type 2 diabetes mellitus with diabetic peripheral angiopathy without gangrene; E11.40 Type 2 diabetes mellitus with diabetic neuropathy, unspecified; I25.10 Atherosclerotic heart disease of native coronary artery without angina pectoris; J44.9 Chronic obstructive pulmonary disease, unspecified; K21.9 Gastro-esophageal reflux disease without esophagitis; I10 Essential (primary) hypertension; E03.9 Hypothyroidism, unspecified; F32.9 Major depressive disorder, single episode, unspecified; F41.9 Anxiety disorder, unspecified; Z87.891 Personal history of nicotine dependence; Z79.4 Long term (current) use of insulin; X58.XXXD Exposure to other specified factors, subsequent encounter ==

== ENCOUNTER → 2020-05-30 | Outpatient (CLI) | payer OTHER, MEDICAID | LOC: M.WC 05:22 | PROVIDERS: ATTEND Family Medicine | DX: E11.621 Type 2 diabetes mellitus with foot ulcer (principal); I70.248 Atherosclerosis of native arteries of left leg with ulceration of other part of lower leg; L97.521 Non-pressure chronic ulcer of other part of left foot limited to breakdown of skin; I70.244 Atherosclerosis of native arteries of left leg with ulceration of heel and midfoot; L97.421 Non-pressure chronic ulcer of left heel and midfoot limited to breakdown of skin; E11.51 Type 2 diabetes mellitus with diabetic peripheral angiopathy without gangrene; E11.40 Type 2 diabetes mellitus with diabetic neuropathy, unspecified; I25.10 Atherosclerotic heart disease of native coronary artery without angina pectoris; J44.9 Chronic obstructive pulmonary disease, unspecified; K21.9 Gastro-esophageal reflux disease without esophagitis; I10 Essential (primary) hypertension; E03.9 Hypothyroidism, unspecified; F41.9 Anxiety disorder, unspecified; F32.9 Major depressive disorder, single episode, unspecified; Z87.891 Personal history of nicotine dependence; Z79.4 Long term (current) use of insulin ==

== ENCOUNTER 2020-12-12 17:07 | Emergency (ER) | payer OTHER, MEDICAID ==
[~2020-12-12] VITALS: Ht 165.1 cm; Wt 62.6 kg
[2020-12-12 17:46] LABS: ABSOLUTE EOSINOPHILS 0.1 thou/uL (0.0-0.7); ABSOLUTE LYMPHOCYTES 1.7 thou/uL (0.8-5.3); ABSOLUTE MONOCYTES 0.5 thou/uL (0.0-1.2); ABSOLUTE NEUTROPHILS 4.4 thou/uL (1.6-8.1); BASOPHILS 0.7 %; EOSINOPHILS 1.5 %; HEMATOCRIT 41.2 % (37.0-47.0); HEMOGLOBIN 13.8 gm/dL (12.0-15.0); LYMPHOCYTES 24.8 %; MCH 32.6 pg (26.0-34.0); MCHC 33.6 g/dL (28.0-37.0); MCV 96.9 fL (80.0-100.0); MONOCYTES 7.1 %; NUCLEATED RBCS 0 /100WBC; PLATELET COUNT* 229 thou/uL (150-400); POLYS 65.9 %; RBC 4.25 mil/uL (4.20-5.00); RDW-CV 12.3 % (10.5-14.5); WBC 6.7 thou/uL (4.0-11.0)
[2020-12-12 17:54] LABS: CALCIUM 8.9 mg/dL (8.5-10.1); POTASSIUM 3.9 mmol/L (3.5-5.1)
[2020-12-12 18:06] LABS: ALBUMIN 3.5 g/dL (3.4-5.0); TOTAL BILIRUBIN 0.3 mg/dL (<0.1-1.0); TOTAL PROTEIN 6.6 g/dL (6.4-8.2)
[2020-12-12 19:16] VITALS: BP 132/70
--- NOTE | 2020-12-13 10:29 | EKG ---
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1950 Requested By: Teofilo Dobson Order Number: [id number] MD: Benoit Sawant Measurements Intervals [place] Rate: 69 P: 73 [place]: 155 QRS: 37 QRSD: 86 T: 56 QT: 413 QTc: 443 Interpretive Statements Sinus rhythm Low voltage, precordial leads Baseline wander in lead(s) V6 Compared to ECG 06/01/2018 08:54:38 Low QRS voltage now present Electronically Signed On 12-13-2020 10:29:39 ANCHOR TACK PULLER by Benoit Sawant [email or web address] <ELECTRONICALLY SIGNED> By: Cari Sawant MD, [facility] 12/13/20 1029 1730 1730 Cari Sawant MD, [facility] /EPI
== END 2020-12-12 19:17 | disposition home or self-care (01) ==
LOC: M.ERS 17:07
PROVIDERS: Physician Assistant
DX: R60.0 Localized edema (principal); E11.9 Type 2 diabetes mellitus without complications; E78.5 Hyperlipidemia, unspecified; E03.9 Hypothyroidism, unspecified; Z79.4 Long term (current) use of insulin; Z90.49 Acquired absence of other specified parts of digestive tract; Z98.51 Tubal ligation status

== ENCOUNTER → 2021-09-08 | Outpatient (CLI) | payer OTHER, MEDICAID ==
[2021-09-08 11:12] LABS: CREATININE 1.1 mg/dL (0.6-1.3)
== END ==
LOC: M.CT 08-20 11:00 → M.LAB 10:23 → M.CT 11:30
PROVIDERS: ATTEND Surgery Vascular Surgery
DX: J98.4 Other disorders of lung (principal); I70.0 Atherosclerosis of aorta; M47.812 Spondylosis without myelopathy or radiculopathy, cervical region; I65.23 Occlusion and stenosis of bilateral carotid arteries